=== PATIENT | male | born 1975 | race Hispanic/Latino ===

== ENCOUNTER 2018-10-21 11:37 | Emergency (ER) | payer OTHER, SELFPAY ==
[~2018-10-21 11:37] MED LIST: ISOVUE-370 76%-LOCM 1 ML ONE
--- NOTE | 2018-10-21 12:13 | RAD ---
PORTABLE CHEST 1 VIEW: Date: 10/21/18 Time: 1200 hours HISTORY: Dyspnea. FINDINGS/IMPRESSION: Comparison made with exam of 05/14/16. The heart is enlarged. Changes of median sternotomy are again seen. No lobar consolidation, pneumotho races, emma pulmonary edema, or large effusions are seen. A small left pleural effusion may be prese nt. POS: [facility]
[2018-10-21 12:22] LABS: ALT (SGPT) 25 U/L (8-55); AST (SGOT) 21 U/L (5-34); Albumin 4.4 g/dL (3.5-5.0); Alkaline Phosphatase 54 U/L (40-150); Anion Gap 14 mmol/L (10-20); BUN (Urea Nitrogen) 15 mg/dL (8.9-20.6); Bilirubin, Total 1.2 mg/dL (0.2-1.2); CK (CPK) 108 U/L (30-200); Calc. Creatinine Clearance 0 mL/min (70-130); Calcium 9.4 mg/dL (7.8-10.44); Carbon Dioxide 24 mmol/L (22-29); Chloride 103 mmol/L (98-107); Estimated GFR-MDRD 89; Globulin 3.4 g/dL (2.4-3.5); Glucose 104 mg/dL (70-105); Lipase 16 U/L (8-78); Potassium 3.7 mmol/L (3.5-5.1); Protein, Total 7.8 g/dL (6.0-8.3); Sodium 137 mmol/L (136-145)
--- NOTE | 2018-10-21 13:39 | CT ---
CT OF ABDOMEN AND PELVIS PERFORMED WITH CONTRAST ENHANCEMENT: Date: 10/21/18 HISTORY: Abdominal pain, fever. FINDINGS: The lung bases show gravity-dependent atelectasis. Liver, spleen, pancreas, and gallbladder regions s how no focal abnormalities. Suggestion of some slight fatty change to the liver. Right and left adrenal glands, and right and left kidneys are normal in size. No significant periaort ic or mesenteric adenopathy. CT of pelvis was performed with contrast enhancement. The appendix is normal. No pelvic lymphadenopat hy or mass. Review of osseous structures show compression changes involving the superior end plate of L1. In i dominguez a previous MRI study of 02/12/12, these changes were present at that time. IMPRESSION: 1. No acute abnormalities of the abdomen or pelvis. 2. IVC filter incidentally noted. 3. Old L1 compression injury. POS: [facility]
[2018-10-21] MEDS ORDERED: Ketorolac Tromethamine 30 MG/ML VIAL ONE (13:56)
[2018-10-21] MEDS ORDERED: Albuterol Sulfate 2.5 mg/3 ml Neb ONE (14:03)
[2018-10-21 14:29] LABS: #Lymphocytes 1.5 thou/uL (1.20-3.40); #Monocytes 0.7 thou/uL (0.11-0.59); #Neutrophils 4.4 thou/uL (1.40-6.50); %Basophils 0.2 % (0.0-1.0); %Eosinophils 0.6 % (0.0-10.0); %Monocytes 10.7 % (0.0-10.0); %Neutrophils 66.5 % (42.0-75.0); Hemoglobin 15.6 g/dL (14.0-18.0); Mean Corpuscular HGB CONC 33.4 g/dL (32.0-36.0); Mean Corpuscular Hemoglobin 30.7 pg (27.0-31.0); Mean Corpuscular Volume 91.8 fL (78.0-98.0); Mean Platelet Volume 8.7 fL (7.4-10.4); Platelet Count 241 thou/uL (130-400); RBC Distribution Width 12.1 % (11.5-14.5); Red Blood Cell (RBC) Count 5.08 mill/uL (4.70-6.10); White Blood Cell (WBC) Count 6.6 thou/uL (4.8-10.8)
== END 2018-10-21 14:15 | disposition home or self-care (01) ==
LOC: ERS 11:37
DX: J20.9 Acute bronchitis, unspecified (principal); I25.2 Old myocardial infarction; Z79.899 Other long term (current) drug therapy; Z79.82 Long term (current) use of aspirin
CPT/HCPCS: 36415; 71045; 74177; 80053; 82550; 83605; 83690; 84484; 85025; 87040; 87804; 93005; 94640; 96361; 96374; J1885; J7611; J7620; Q9966